=== PATIENT | female | born 1990 | race Caucasian/White ===

== ENCOUNTER 2021-07-12 17:22 | Inpatient (IN) ==
[2021-07-12] MEDS ORDERED: OXYTOCIN 30 UNITS/500 ML BAG IV PRN ×2 (17:41→20:46)
--- NOTE | 2021-07-12 17:44 | History & Physical Report ---
Date of Service July 12, 2021 Assessment & Plan (1) with 39 completed weeks gestation: (2) Normal labor: Plan: admit for labor. plan epidural. arom /pit as indicated. Anticipate . fetus category one. History of Present Illness Chief Complaint: painful contractions Primary Care Provider: Alta Kiser DO Patient is a 30yowf with iup at 39 6/7 weeks who notes onset of contractions about 1:30, now <5min, painful. no lof/vb. Notes fm today but decreased. has been uncomplicated. OB Labs: Blood Type O Positive 12/04/20 Antibody Screen NEGATIVE 12/04/20 Hemoglobin 12.2 g/dL (12.0-16.0) 04/23/21 Hematocrit 37.0 % (37-47) 04/23/21 Mean Corpuscular Volume 90.1 fL (80-100) 12/04/20 Platelet Count 249 K/uL (130-400) 12/04/20 Rubella IgG Antibody Immune (Immune) 12/04/20 Rapid Plasma Reagin Nonreactive (Nonreactive) 12/04/20 Hepatitis B Surface Antigen Neg (Neg) 12/04/20 HIV (1&2) Ab and P24 Ag, 4th Gener Neg (Neg) 12/04/20 Glucose 1 Hour 50 gm Load 92 mg/dl (70-130) 04/23/21 OB Optional Labs: Chlamydia trachomatis RNA NOT DETECTED (NOT DETECTED) 12/04/20 Neisseria gonorrhoeae RNA NOT DETECTED (NOT DETECTED) 12/04/20 Thyroid Stimulating Hormone (TSH) 2.280 uIu/ml (0.300-4.500) 08/04/20 Labs Reviewed: cfDNA low risk--smp msafp declines--smp low risk panorama--akh gbs neg Allergies Allergy/AdvReac Type Severity Reaction Status Date / Time No Known Allergies Allergy Verified 07/08/21 16:31 Home Medications Medication Instructions Recorded Confirmed Type prenat.vits,nika,ddk-rtty-uaryv 1 tab PO DAILY 11/25/20 07/08/21 History ondansetron HCl 4 mg tablet 4 mg PO Q6H PRN #20 tab 12/15/20 07/08/21 Rx (Zofran) metronidazole 0.75 % vaginal gel 1 appful VAGINAL BID 5 Days #70 g 03/26/21 07/08/21 Rx omeprazole magnesium 20 mg 20 mg PO DAILY #30 tab 06/18/21 07/08/21 Rx tablet,delayed release (Prilosec OTC) Patient History Medical History Anxiety Surgical History [place] teeth removed Family History Mother Breast cancer, Onset Age: 41 Smoker Meningioma Father No problems noted. Sister Thyroid disease Denies family history of Ovarian cancer Prostate cancer Myocardial infarction Colorectal cancer Social History Smoking Status: Never smoker Second Hand Exposure: No; Hx Alcohol Use: No Hx Substance Use: No Preferred Language: Tajik Visual Impairment: No Limitations Hearing Ability: Normal Pipe Bender Required: No Beliefs That Will Affect Care: None marital status: marital status details: christian (35) [phone] Current Living Situation: Spouse Current Living Situation Comment: lives w/ and daughter, 2 dogs. current occupational status: employed current occupation: Pharmacist, [employer] How many Children do You have: 1 Feels Safe at Home: Yes Childhood Exposure to Second-Hand Smoke: Yes caffeine: Yes during the past year weight has: remained stable Dental Care, Regularly: Yes Physical Activity Frequency: Does not Exercise Seatbelt Use: always Sunscreen Use: Yes Assistive Devices: None OB History Past Pregnancies Del. Date GA wks Lbr Lgth wt Sex Type del Anes Place Del Prov ? Comment 03/30/19 39 7lb 5oz F Epidu ral Other [facility] [place] No [facility] History noncontributory Physical Exam Constitutional: WD/WN, vitals as above (uncomfortable with contractions.) Gastrointestinal (Abdomen): soft, gravid, nt Psychiatric: A+Ox3, euthymic affect Genitourinary: cx--tight /-2 toco--q1-2min, spontaneous efm--130s with mod variabiltiy, accels present, no decels Code Status & VTE Plan VTE Prophylaxis Plan VTE Prophylaxis will be ordered: No Coding Level of Care Code None Diagnoses with 39 completed weeks gestation Z3A.39 Normal labor O80; Z37.9
[2021-07-12 18:04] LABS: Hemoglobin 12.4 g/dL (12.0-16.0); Mean Corpuscular Hemoglobin 31.7 pg (25-34); Mean Corpuscular Hgb Conc 34.4 g/dL (32-36); Mean Corpuscular Volume 92.1 fL (80-100); Mean Platelet Volume 11.2 fL (7.4-10.4); Platelet Count 205 K/uL (130-400); RDW Coefficient of Variation 13.3 % (11.5-14.5); RDW Standard Deviation 44.5 fL (36.4-46.3); Red Blood Count 3.91 M/uL (4.2-5.4); White Blood Count 11.71 K/uL (4.8-10.8)
[2021-07-12] MEDS: LACTATED RINGER'S 1,000 ML IV PRN ×2 (18:08→19:10)
[2021-07-12] MEDS ORDERED: BUPIVACAINE 0.25% 30 ML VIAL ONE (18:54)
[2021-07-12] MEDS ORDERED: ePHEDrine sulfate 50 MG/ML AMP ONE (18:54)
[2021-07-12] MEDS ORDERED: SODIUM CHLORIDE 0.9% INJ 10 ML VIAL ONE (18:54)
[2021-07-12] MEDS ORDERED: fentaNYL citrate 100 MCG/2 ML VIAL ONE (18:54)
--- NOTE | 2021-07-12 18:54 | Anesthesiology Consultation ---
Date of Service July 12, 2021 Assessment & Plan (1) Encounter for pre-operative examination: Chart Review Chart Review: Acceptable Risk for Labor Epidural History Height/Weight Height: 5 ft 3 in Weight: 83.461 kg Allergies Allergy/AdvReac Type Severity Reaction Status Date / Time No Known Allergies Allergy Verified 07/08/21 16:31 Medications Home Medications Medication Instructions Recorded Confirmed Last Taken prenat.vits,nika,xza-evpd-epgqf 1 tab PO DAILY 11/25/20 07/12/21 07/10/21 Active Medications Generic Name Dose Route Start Last Admin Trade Name Freq PRN Reason Stop Dose Admin Lactated Ringer's 1,000 mls @ 125 mls/hr 07/12/21 17:41 07/12/21 18:08 Lr IV 07/14/21 17:40 999 mls/hr .Q8H PRN Administration L&D Protocol Protocol Past Medical History Medical History Anxiety Past Family History Family History Mother Breast cancer, Onset Age: 41 Smoker Meningioma Father No problems noted. Sister Thyroid disease Denies family history of Ovarian cancer Prostate cancer Myocardial infarction Colorectal cancer Past Surgical History Surgical History [place] teeth removed Social History Smoking Status: Never smoker Hx Alcohol Use: No Hx Substance Use: No Physical Exam Vital Signs Last Vital Signs Temp 36.6 C 07/12/21 18:27 Pulse 86 07/12/21 18:33 Resp 20 07/12/21 18:27 BP 120/77 07/12/21 18:33 Testing Laboratory Results 07/12/21 17:51
[2021-07-12] MEDS ORDERED: fentaNYL 2MCG/ML ROPIVACAINE 1.25MG/ML 100 ML BAG EPI ONE (18:55)
--- NOTE | 2021-07-12 20:46 | Labor Progress Brief Note ---
Date of Service July 12, 2021 Subjective comfortable Assessment & Plan (1) Normal labor: Plan: continue current management. pit if needed. fetus category one. Physical Exam Physical Exam: cx--4/80/-2 arom--copious clear toco--q3-8 min efm--130s wtih mod variability, accels to 150s, no decels Results & Data ([facility]) Vital Signs (Past 12 Hours) Vital Signs Temp Pulse Resp BP Pulse Ox 07/12/21 20:41 67 100 07/12/21 20:36 80 111/54 L 100 07/12/21 20:31 79 98 07/12/21 20:29 79 98/55 L 07/12/21 20:26 73 98 07/12/21 20:25 77 97/51 L 07/12/21 20:21 73 99 07/12/21 20:20 69 101/55 L 07/12/21 20:16 79 98 07/12/21 20:14 75 96/53 L 07/12/21 20:11 77 99 07/12/21 20:10 77 97/53 L 07/12/21 20:06 71 99 07/12/21 20:05 74 95/55 L 07/12/21 20:01 77 101/53 L 100 07/12/21 19:56 73 99 07/12/21 19:54 63 102/54 L 07/12/21 19:51 72 98 07/12/21 19:46 78 99 07/12/21 19:41 84 123/65 98 07/12/21 19:36 85 98 07/12/21 19:31 88 18 99 07/12/21 19:26 94 H 98 07/12/21 19:25 88 138/78 07/12/21 19:24 78 135/63 07/12/21 19:22 96 H 150/65 H 07/12/21 19:21 91 H 98 07/12/21 19:20 93 H 140/61 07/12/21 19:17 91 H 133/58 L 07/12/21 19:16 92 H 99 07/12/21 19:11 87 99 07/12/21 19:10 75 137/64 07/12/21 19:06 90 100 07/12/21 19:01 83 99 07/12/21 18:56 96 H 100 07/12/21 18:54 18 07/12/21 18:33 86 120/77 07/12/21 18:27 36.6 C 86 20 120/77 Coding Level of Care Code None Diagnoses Normal labor O80; Z37.9
[2021-07-12] MEDS ORDERED: fentaNYL 2MCG/ML ROPIVACAINE 1.25MG/ML 100 ML BAG EPI PRN (22:56)
--- NOTE | 2021-07-13 00:24 | Delivery Summary ---
Vaginal Delivery Summary Date of Service July 13, 2021 Vaginal Delivery Summary Pre-operative Diagnosis: at 40 weeks active labor Post-operative Diagnosis: same Procedure: epidural arom EBL: 300cc Anesthesia: epidural Procedure: Patient presented to labor and delivery in early active labor. She underwent epidural and then arom. She then progressed to c/c/+2. The patient pushed for two contractions to deliver a viable female infant in sabiha position. The nose and mouth were bulb suctioned on the perineum and the rest of the infant was then delivered without difficulty. The infant was placed in the maternal abdomen for drying and attention. Cord was clamped and cut at about 30 secs and taken to the warmer for drying and attention. Cord blood obtained. Placenta delivered spontaneous, intact with a three vessel cord. Cervix/sulci/rectum were intact. Perineum was intact. Hemostasis obtained with dilute pitocin and fundal massage. Apgars were 7/9. Mother and baby doing well at the end of the delivery. [facility] Vaginal Delivery Charge Delivery Type Details: [facility]
--- NOTE | 2021-07-13 00:29 | Anesthesia Procedure Note ---
Date of Service July 13, 2021 Anesthesia Post Epidural Note Vital Signs Vital Signs: Temp Pulse Resp BP Pulse Ox 36.5 C 85 18 113/54 L 99 07/12/21 22:40 07/13/21 00:18 07/12/21 22:40 07/13/21 00:18 07/13/21 00:16 Notes Mental Status: alert / awake / arousable Nausea / Vomiting: adequately controlled Pain: adequately controlled Airway Patency, RR, SpO2: stable & adequate BP & HR: stable & adequate Hydration State: stable & adequate Neuraxial Anesthesia: was administered and sensory block is resolving Anesthetic Complications: no major complications apparent and Pt Satisfied with anesthetic care Epidural: Removed without complications and With tip intact
[2021-07-13] MEDS ORDERED: METHYLERGONOVINE MALEATE 0.2 MG/ML AMP IM STA (00:33)
[2021-07-13] MEDS ORDERED: ONDANSETRON INJ 2 MG/ML 2 ML VIAL IV PRN (00:54)
[2021-07-13] MEDS ORDERED: ONDANSETRON INJ 2 MG/ML 2 ML VIAL ONE (01:05)
[2021-07-13] MEDS ORDERED: DIPHTHERIA/TETANUS/PERTUSSIS 0.5 ML SYR/VIAL IM ONE (05:28)
[2021-07-13] MEDS ORDERED: OXYTOCIN 30 UNITS/500 ML BAG IV PRN (05:28)
[2021-07-13] MEDS ORDERED: ACETAMINOPHEN 325 MG TAB PO PRN (05:28)
[2021-07-13] MEDS ORDERED: BENZOCAINE 20% AER SPR 82.5 GM CAN EXT PRN (05:28)
[2021-07-13] MEDS ORDERED: HYDROCORTISONE ACETATE 25 MG SUPP PR PRN (05:28)
[2021-07-13] MEDS ORDERED: oxyCODONE/ACETAMINOPHEN 5mg/325mg TAB PO PRN (05:28)
[2021-07-13] MEDS ORDERED: IBUPROFEN 600 MG TAB PO ONE (05:40)
--- NOTE | 2021-07-13 07:54 | Obstetrical Progress Note ---
Date of Service July 13, 2021 Assessment & Plan (1) Normal labor: (2) with 39 completed weeks gestation: Patient doing well. Routine care. Day #:: 0 Subjective Ambulation: ambulating normally Voiding: no voiding problems Passing Gas:: Yes Diet Tolerance:: regular diet Lochia:: Small Feeding Type:: breast feeding Physical Exam Constitutional WD/WN, vitals as above Cardiovascular Extremities: no calf tenderness and no edema Gastrointestinal (Abdomen) soft, nt, nd, ff/nt 2 below u Psychiatric A+Ox3, euthymic affect Results & Data ([facility]) Vital Signs (Past 12 Hours) Vital Signs Temp Pulse Pulse Resp BP BP Pulse Ox 07/13/21 07:20 36.3 C L 71 18 107/69 96 07/13/21 03:06 36.6 C 81 18 121/64 07/13/21 02:41 81 121/64 07/13/21 02:27 88 131/58 L 07/13/21 02:24 93 H 134/64 07/13/21 02:20 36.6 C 18 07/13/21 02:04 89 120/71 07/13/21 01:50 18 07/13/21 01:43 75 127/59 L 07/13/21 01:32 75 111/59 L 07/13/21 01:28 77 113/56 L 07/13/21 01:20 76 18 119/65 07/13/21 01:05 18 07/13/21 01:02 80 136/63 07/13/21 00:52 81 135/74 07/13/21 00:50 18 07/13/21 00:43 85 122/54 L 07/13/21 00:37 92 H 115/59 L 07/13/21 00:35 18 07/13/21 00:20 18 07/13/21 00:18 85 113/54 L 07/13/21 00:16 89 99 07/13/21 00:11 111 H 100 07/13/21 00:10 109 H 90 07/13/21 00:06 70 100 07/13/21 00:01 75 98 07/12/21 23:59 70 113/79 07/12/21 23:56 71 113/54 L 97 07/12/21 23:51 71 97 07/12/21 23:46 72 96 07/12/21 23:41 71 96 07/12/21 23:40 71 120/61 07/12/21 23:36 77 96 07/12/21 23:31 75 98 07/12/21 23:26 79 120/75 97 07/12/21 23:21 81 98 07/12/21 23:16 72 98 07/12/21 23:11 77 98 07/12/21 23:10 77 122/78 07/12/21 23:06 76 98 07/12/21 23:01 78 97 07/12/21 22:56 71 98 07/12/21 22:55 74 119/56 L 07/12/21 22:51 75 98 07/12/21 22:46 72 97 07/12/21 22:42 71 114/55 L 07/12/21 22:41 77 98 07/12/21 22:40 36.5 C 18 07/12/21 22:36 75 98 07/12/21 22:31 74 99 07/12/21 22:26 80 98 07/12/21 22:25 74 116/56 L 07/12/21 22:21 89 98 07/12/21 22:16 74 99 07/12/21 22:12 84 119/55 L 07/12/21 22:11 77 99 07/12/21 22:06 81 98 07/12/21 22:01 84 98 07/12/21 21:56 83 105/59 L 98 07/12/21 21:51 83 100 07/12/21 21:46 84 100 07/12/21 21:41 80 100 07/12/21 21:40 78 103/51 L 07/12/21 21:36 79 100 07/12/21 21:31 76 100 07/12/21 21:26 75 114/53 L 100 07/12/21 21:21 79 100 07/12/21 21:16 79 100 07/12/21 21:12 86 111/70 07/12/21 21:11 83 100 07/12/21 21:06 83 100 07/12/21 21:01 82 99 07/12/21 20:57 73 107/56 L 07/12/21 20:56 73 100 07/12/21 20:51 70 100 07/12/21 20:47 64 103/56 L 07/12/21 20:46 67 100 07/12/21 20:41 67 100 07/12/21 20:40 36.5 C 18 07/12/21 20:36 80 111/54 L 100 07/12/21 20:31 79 98 07/12/21 20:29 79 98/55 L 07/12/21 20:26 73 98 07/12/21 20:25 77 97/51 L 07/12/21 20:21 73 99 07/12/21 20:20 69 101/55 L 07/12/21 20:16 79 98 07/12/21 20:14 75 96/53 L 07/12/21 20:11 77 99 07/12/21 20:10 77 97/53 L 07/12/21 20:06 71 99 07/12/21 20:05 74 95/55 L 07/12/21 20:01 77 101/53 L 100 07/12/21 19:56 73 99 07/12/21 19:54 63 102/54 L
[2021-07-13] MEDS: DOCUSATE SODIUM 100 MG CAP PO SCH ×2 (08:09→20:42)
[2021-07-13] MEDS: PRENATAL VITAMIN 1 TAB PO SCH (08:09)
[2021-07-13] MEDS: IBUPROFEN 600 MG TAB PO PRN ×2 (12:24→19:33)
--- NOTE | 2021-07-14 05:06 | Obstetrical Progress Note ---
Date of Service <Judit Roque MD - Last Filed: 07/14/21 06:37> July 14, 2021 Assessment & Plan <Judit Roque MD - Last Filed: 07/14/21 06:37> (1) Vaginal delivery: 30 yo now PPD1 from at 39wk6d -Discharge home today, discharge instructions reviewed with patient -Vitals reviewed- HDS, afebrile -F/u in 6 weeks with OB <Lizzie Clark MD - Last Filed: 07/14/21 06:53> (1) Vaginal delivery: Subjective <Judit Roque MD - Last Filed: 07/14/21 06:37> Ambulation: ambulating normally Voiding: no voiding problems Passing Gas:: Yes Diet Tolerance:: regular diet Lochia:: Small Feeding Type:: breast feeding Current Pain Level(1-10): 5 Pt doing well overall, no acute complaints or distress. Some crampy pain with , but relieved with medication. going well. Review of Systems Denies fever/chills. Denies dyspnea, cough. Denies chest pain. Denies breast pain or discharge. Denies dysuria. Denies headache. Denies back pain. Physical Exam <Judit Roque MD - Last Filed: 07/14/21 06:37> General: Alert, oriented, no acute distress Cardiac: Regular rate and rhythm, normal S1, S2. No murmurs appreciated. Respiratory: Clear to auscultation b/l with good air flow entry, symmetric chest rise and fall. No wheezes or crackles. No increased work of breathing or accessory muscle use Abdomen: Soft, nontender, nondistended. Fundus firm and palpable at 2 cm below umbilicus. No guarding or rebound. Skin: No rashes or lesions Extremities: Warm, dry, well-perfused with capillary refill <2s b/l. No lower extremity edema, erythema, swelling or calf tenderness b/l. Results & Data ([facility]) <Judit Roque MD - Last Filed: 07/14/21 06:37> Vital Signs (Past 12 Hours) Vital Signs Temp Pulse Resp BP Pulse Ox 07/14/21 00:00 36.6 C 79 18 105/54 L 05/30/22 19:30 36.5 C 88 18 104/63 98 <Lizzie Clark MD - Last Filed: 07/14/21 06:53> Co-Signing Physician Notes Resident Physician Supervision Note: I interviewed and examined the patient. Discussed with Dr. Roque and agree with findings and plan as documented in the note. Any exceptions or clarifications are listed here: PP1 s/p , doing well. VSS, exam benign and wnl. Stable for d/c home today Documented By: Lizzie Clark MD Resident Activity Tracking <Judit Roque MD - Last Filed: 07/14/21 06:37> Resident Involvement: Resident Care Provided Care Provided: OB Delivery
[2021-07-14] MEDS: IBUPROFEN 600 MG TAB PO PRN ×2 (06:16→11:06)
[2021-07-14 08:24] LABS: Hematocrit (blood only) 34.3 % (37-47); Hemoglobin 11.3 g/dL (12.0-16.0)
[2021-07-14] MEDS: PRENATAL VITAMIN 1 TAB PO SCH (08:50)
[2021-07-14] MEDS: DOCUSATE SODIUM 100 MG CAP PO SCH (08:50)
[2021-07-14] MEDS ORDERED: bisacodyL 5 MG TABEC PO SCH (20:00)
[2021-07-15] MEDS ORDERED: bisacodyL 10 MG SUPP PR PRN (05:28)
== END 2021-07-14 11:32 | disposition home or self-care (01) | DRG 807 ==
LOC: OPB 17:22 → 4S1 17:23 → 4E2 07-13 03:15

== ENCOUNTER 2024-03-17 19:54 | Inpatient (IN) ==
[2024-03-17] MEDS ORDERED: LIDOCAINE 1% LOCAL 20 ML VIAL INFIL PRN (19:56)
[2024-03-17] MEDS: SODIUM CHLORIDE 0.9% 1,000 ML IV SCH (20:07)
[2024-03-17 20:29] LABS: Hematocrit (blood only) 33.7 % (37.0-47.0); Hemoglobin 11.5 g/dl (12.0-16.0); Mean Corpuscular Hemoglobin 30.1 pg (25.0-34.0); Mean Corpuscular Hgb Conc 34.1 g/dL (32.0-36.0); Mean Corpuscular Volume 88.2 fL (80.0-100.0); Mean Platelet Volume 10.9 fL (9.4-12.4); Platelet Count 171 K/uL (130-400); RDW Coefficient of Variation 13.6 % (11.5-14.5); RDW Standard Deviation 43.9 fL (36.4-46.3); Red Blood Count 3.82 M/uL (4.20-5.40); White Blood Count 10.66 K/ul (4.8-10.8)
[2024-03-17] MEDS ORDERED: NALOXONE HCL 0.4 MG/1 ML VIAL/CARP IV PRN (20:50)
[2024-03-17] MEDS ORDERED: NALBUPHINE HCL INJ 10 MG/ML AMP IV PRN (20:50)
[2024-03-17] MEDS ORDERED: diphenhydrAMINE 50 MG/ML VIAL IV PRN (20:50)
[2024-03-17] MEDS ORDERED: LIDOCAINE 2% MPF LOCAL 5 ML VIAL EPI PRN (20:50)
[2024-03-17] MEDS ORDERED: ePHEDrine sulfate 50 MG/ML AMP IV PRN (20:50)
[2024-03-17] MEDS ORDERED: BUPIVACAINE 0.25% PF 30 ML VIAL EPI PRN (20:50)
[2024-03-17] MEDS ORDERED: ROPIVACAINE 0.5% PF 5 MG/ML 20 ML VIAL EPI PRN (20:50)
[2024-03-17] MEDS ORDERED: fentaNYL citrate PF 100 MCG/2 ML VIAL EPI PRN (20:50)
[2024-03-17] MEDS ORDERED: NALOXONE HCL 1 MG in SODIUM CHLORIDE 0.9% 1,000 ML IV PRN (20:50)
[2024-03-17] MEDS ORDERED: SODIUM CHLORIDE 0.9% PF INJ 10 ML VIAL EPI PRN (20:50)
--- NOTE | 2024-03-17 20:50 | Anesthesiology Consultation ---
Date of Service March 17, 2024 Assessment & Plan Chart Review Chart Review: Patient NOT seen in Pre Admission Testing and Acceptable Risk for Labor Epidural Consults Requested none History Height/Weight Height: 5 ft 3 in Weight: 84.368 kg Allergies Allergy/AdvReac Type Severity Reaction Status Date / Time No Known Allergies Allergy Verified 03/15/24 15:21 Medications Home Medications Medication Instructions Recorded Confirmed Last Taken vits no.124-ferrous fum 1 tab PO DAILY 03/17/24 03/17/24 Unknown 27 mg iron-folic acid 800 mcg tablet ( Vitamin) Active Medications Generic Name Dose Route Start Last Admin Trade Name Freq PRN Reason Stop Dose Admin Sodium Chloride 1,000 mls @ 50 mls/hr 03/17/24 20:45 03/17/24 20:37 Nss IV 03/18/24 20:44 50 mls/hr .Q20H [facility] Infusion Past Medical History Medical History Spontaneous Prior miscarriage with , antepartum Anxiety History of chicken pox Missed Past Family History Family History Mother Breast cancer, Onset Age: 41 Smoker Meningioma Father No problems noted. Sister Thyroid disease PCOS (polycystic ovarian syndrome) Denies family history of Ovarian cancer Prostate cancer Myocardial infarction Colorectal cancer Past Surgical History Surgical History S/P dilation and curettage [place] teeth removed Social History Smoking Status: Never smoker Do You Dip or Chew Tobacco: No Hx Alcohol Use: No Hx Substance Use: No substance use type: does not use Physical Exam Vital Signs Last Vital Signs Temp 98.2 F 03/17/24 19:59 Pulse 68 03/17/24 19:59 Resp 20 03/17/24 19:59 BP 126/69 03/17/24 19:59 Testing Laboratory Results 03/17/24 20:16
[2024-03-17] MEDS: fentANYL 2 MCG/ML BUPIVacaine 0.125%-NSS 100ML BAG EPI PRN (21:10)
[2024-03-17] MEDS: LIDOCAINE 2%/EPINEPHRINE 1:200,000 20 ML PF EPI STA (21:10)
[2024-03-17] MEDS: BUPIVACAINE 0.25% PF 30 ML VIAL EPI STA (21:10)
[2024-03-17] MEDS: fentaNYL citrate PF 100 MCG/2 ML VIAL EPI STA (21:10)
[2024-03-17] MEDS: fentANYL 2 MCG/ML BUPIVacaine 0.125%-NSS 100ML BAG ONE (22:21)
[2024-03-17] MEDS: SODIUM CHLORIDE 0.9% PF INJ 10 ML VIAL ONE (22:21)
[2024-03-17] MEDS: BUPIVACAINE 0.25% PF 30 ML VIAL ONE (22:21)
[2024-03-17] MEDS: fentaNYL citrate PF 100 MCG/2 ML VIAL ONE (22:21)
[2024-03-17] MEDS: ePHEDrine sulfate 50 MG/ML AMP ONE (22:21)
[2024-03-17] MEDS: LIDOCAINE 2%/EPINEPHRINE 1:200,000 20 ML PF ONE (22:21)
[2024-03-17] MEDS: SODIUM CHLORIDE 0.9% PF INJ 10 ML VIAL EPI STA (22:22)
[2024-03-17] MEDS: OXYTOCIN 30 UNITS/NSS 30 UNITS/500 ML BAG IV PRN (23:48)
--- NOTE | 2024-03-17 23:54 | Delivery Summary ---
Vaginal Delivery Summary Date of Service March 17, 2024 Vaginal Delivery Summary Spontaneous vaginal livery the patient arrived in active labor at 4 cm requested epidural uncomplicated presents GBS negative rapidly progressed to fully dilated membranes were then artificially ruptured she pushed over 1 contraction delivering a baby in occiput anterior position there was no nuchal cord and the fluid was clear gentle traction on the baby initially the shoulder could not be easily reached on Jn maneuver quickly descended below the symphysis and was easy to deliver no excessive force easy delivery live vigorous male Cord clamped and cut cord blood obtained placenta removed with traction IV Pitocin started uterine tone improved no tearing quantitative blood loss 50 mL sponge and instrument counts correct [facility] Vaginal Delivery Charge Delivery Type Details:
[2024-03-18] MEDS ORDERED: HYDROCORTISONE ACETATE 25 MG SUPP PR PRN (02:17)
[2024-03-18] MEDS ORDERED: BENZOCAINE 20% SPRY 85 APPLN/85 GM CAN EXT PRN (02:17)
[2024-03-18] MEDS ORDERED: OXYTOCIN 30 UNITS/NSS 30 UNITS/500 ML BAG IV PRN (02:17)
[2024-03-18] MEDS ORDERED: ACETAMINOPHEN 325 MG TAB PO PRN (02:17)
[2024-03-18 06:56] LABS: Hematocrit (blood only) 32.8 % (37.0-47.0); Hemoglobin 11.2 g/dl (12.0-16.0); Mean Corpuscular Hemoglobin 30.1 pg (25.0-34.0); Mean Corpuscular Hgb Conc 34.1 g/dL (32.0-36.0); Mean Corpuscular Volume 88.2 fL (80.0-100.0); Mean Platelet Volume 11.2 fL (9.4-12.4); Platelet Count 182 K/uL (130-400); RDW Coefficient of Variation 13.7 % (11.5-14.5); RDW Standard Deviation 43.7 fL (36.4-46.3); Red Blood Count 3.72 M/uL (4.20-5.40); White Blood Count 13.32 K/ul (4.8-10.8)
--- NOTE | 2024-03-18 08:22 | Obstetrical Progress Note ---
Date of Service March 18, 2024 Assessment & Plan (1) Encounter for supervision of normal intrauterine in multigravida, antepartum: day 0 from uncomplicated vaginal delivery the patient is doing well she has no extremity pain pain is well-controlled ambulating plan discharge later tomorrow Physical Exam Constitutional WD/WN, vitals as above well developed and well nourished Respiratory normal respiratory effort, lungs clear to auscultation normal respiratory effort Cardiovascular RRR, no murmur, no edema Gastrointestinal (Abdomen) normal bowel sounds, soft, nontender, no hepatosplenomegaly Results & Data Vital Signs (Past 12 Hours) Vital Signs Temp Pulse Pulse Resp BP BP Pulse Ox 03/18/24 03:00 98.4 F 84 18 113/56 L 98 03/18/24 02:08 78 109/60 03/18/24 02:00 18 03/18/24 01:53 81 110/62 03/18/24 01:38 83 109/59 L 03/18/24 01:30 18 03/18/24 01:23 85 114/59 L 03/18/24 01:08 80 117/56 L 03/18/24 01:00 98.1 F 18 03/18/24 00:53 82 122/71 03/18/24 00:45 18 03/18/24 00:38 70 110/59 L 03/18/24 00:30 18 03/18/24 00:23 71 117/58 L 03/18/24 00:15 16 03/18/24 00:08 90 113/68 03/18/24 00:00 18 03/17/24 23:56 81 118/56 L 03/17/24 23:53 96 H 130/69 97 03/17/24 23:48 76 99 03/17/24 23:43 86 98 03/17/24 23:40 75 94 03/17/24 23:39 64 110/54 L 03/17/24 23:38 64 100 03/17/24 23:33 71 98 03/17/24 23:30 18 03/17/24 23:30 18 03/17/24 23:28 75 98 03/17/24 23:24 68 114/57 L 03/17/24 23:23 78 100 03/17/24 23:18 76 97 03/17/24 23:13 75 97 03/17/24 23:09 72 113/53 L 03/17/24 23:08 74 99 03/17/24 23:03 77 98 03/17/24 23:00 18 03/17/24 23:00 18 03/17/24 22:58 82 98 03/17/24 22:54 67 97/55 L 03/17/24 22:53 98 03/17/24 22:53 76 03/17/24 22:53 76 109/56 L 03/17/24 22:48 90 95 03/17/24 22:43 85 98 03/17/24 22:38 85 128/72 100 03/17/24 22:33 77 98 03/17/24 22:30 18 03/17/24 22:30 18 03/17/24 22:28 77 99 03/17/24 22:23 88 99 03/17/24 22:18 85 98 03/17/24 22:13 79 98 03/17/24 22:08 91 H 122/61 98 03/17/24 22:03 93 H 98 03/17/24 22:00 18 03/17/24 22:00 98.2 F 18 03/17/24 21:58 96 H 97 03/17/24 21:54 96 H 122/58 L 03/17/24 21:53 96 H 98 03/17/24 21:48 96 H 97 03/17/24 21:43 84 98 03/17/24 21:40 78 107/56 L 03/17/24 21:38 82 99 03/17/24 21:33 80 99 03/17/24 21:28 78 100 03/17/24 21:23 71 98 03/17/24 21:21 100 H 116/61 03/17/24 21:18 99 03/17/24 21:18 80 03/17/24 21:18 100 H 126/55 L 03/17/24 21:15 75 120/59 L 03/17/24 21:13 81 99 03/17/24 21:12 86 132/64 03/17/24 21:09 77 125/56 L 03/17/24 21:08 78 100 03/17/24 21:07 87 120/71 03/17/24 21:03 86 113/70 100 O2 Del Method 03/18/24 03:00 Room Air 02/02/25 02:08 03/18/24 02:00 03/18/24 01:53 03/18/24 01:38 03/18/24 01:30 03/18/24 01:23 03/18/24 01:08 03/18/24 01:00 03/18/24 00:53 03/18/24 00:45 03/18/24 00:38 03/18/24 00:30 03/18/24 00:23 03/18/24 00:15 03/18/24 00:08 03/18/24 00:00 03/17/24 23:56 03/17/24 23:53 03/17/24 23:48 03/17/24 23:43 03/17/24 23:40 03/17/24 23:39 03/17/24 23:38 03/17/24 23:33 03/17/24 23:30 03/17/24 23:30 03/17/24 23:28 03/17/24 23:24 03/17/24 23:23 03/17/24 23:18 03/17/24 23:13 03/17/24 23:09 03/17/24 23:08 03/17/24 23:03 03/17/24 23:00 03/17/24 23:00 03/17/24 22:58 03/17/24 22:54 03/17/24 22:53 03/17/24 22:53 03/17/24 22:53 03/17/24 22:48 03/17/24 22:43 03/17/24 22:38 03/17/24 22:33 03/17/24 22:30 03/17/24 22:30 03/17/24 22:28 03/17/24 22:23 03/17/24 22:18 03/17/24 22:13 03/17/24 22:08 03/17/24 22:03 03/17/24 22:00 03/17/24 22:00 03/17/24 21:58 03/17/24 21:54 03/17/24 21:53 03/17/24 21:48 03/17/24 21:43 03/17/24 21:40 03/17/24 21:38 03/17/24 21:33 03/17/24 21:28 03/17/24 21:23 03/17/24 21:21 03/17/24 21:18 03/17/24 21:18 03/17/24 21:18 03/17/24 21:15 03/17/24 21:13 03/17/24 21:12 03/17/24 21:09 03/17/24 21:08 03/17/24 21:07 03/17/24 21:03
[2024-03-18] MEDS: PRENATAL VITAMIN 1 TAB PO SCH (08:27)
[2024-03-18] MEDS: DOCUSATE SODIUM 100 MG CAP PO SCH (08:27)
[2024-03-18] MEDS: IBUPROFEN 600 MG TAB PO PRN (08:28)
--- NOTE | 2024-03-18 09:58 | Anesthesia Procedure Note ---
Date of Service March 18, 2024 Anesthesia Post Epidural Note Vital Signs Vital Signs: Temp Pulse Resp BP Pulse Ox O2 Del Method 36.5 C 70 16 125/75 98 Room Air 03/18/24 08:02 03/18/24 08:02 03/18/24 08:02 03/18/24 08:02 03/18/24 08:02 03/18/24 08:02 Pain Intensity Abdomen: Pain Intensity: 3 Notes Mental Status: alert / awake / arousable Nausea / Vomiting: adequately controlled Pain: adequately controlled Airway Patency, RR, SpO2: stable & adequate BP & HR: stable & adequate Hydration State: stable & adequate Neuraxial Anesthesia: was administered and sensory block is resolving Anesthetic Complications: no major complications apparent and Pt Satisfied with anesthetic care Epidural: Removed without complications and With tip intact
[2024-03-18] MEDS: DIPHTHER/TETAN/PERTUS Vaccine (Tdap, Adol/Adult) 0.5mL IM ONE (10:05)
[2024-03-18 15:35] VITALS: TEMP 97.7
[2024-03-18] MEDS: bisacodyL 5 MG TABEC PO SCH (19:20)
[2024-03-19] MEDS: Nursing to Pharmacy Communication SCH (01:07)
--- NOTE | 2024-03-19 07:17 | Obstetrical Progress Note ---
Date of Service March 19, 2024 Assessment & Plan (1) Encounter for supervision of normal intrauterine in multigravida, antepartum: day #1-1/2 she is doing well ambulating no problems no extremity pain wishes to go home Subjective Ambulation: ambulating normally Voiding: no voiding problems Passing Gas:: Yes Diet Tolerance:: regular diet Lochia:: Small Physical Exam Constitutional WD/WN, vitals as above well developed and well nourished Respiratory normal respiratory effort, lungs clear to auscultation normal respiratory effort Cardiovascular RRR, no murmur, no edema Gastrointestinal (Abdomen) normal bowel sounds, soft, nontender, no hepatosplenomegaly Results & Data Vital Signs (Past 12 Hours) Vital Signs Temp Pulse Resp BP Pulse Ox O2 Del Method 03/18/24 23:45 97.7 F 65 18 108/67 96 Room Air 03/18/24 19:30 97.7 F 70 18 126/76 98 Room Air
[2024-03-19 10:34] VITALS: BP 118/69; PULSE 72; RESP 16; O2SAT 98
[2024-03-20] MEDS ORDERED: bisacodyL 10 MG SUPP PR PRN (02:17)
== END 2024-03-19 11:45 | disposition home or self-care (01) | DRG 807 ==
LOC: OPB 19:54 → 4S1 19:56 → 4E2 03-18 03:24